=== PATIENT | female | born 2000 | race Caucasian/White ===

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

== ENCOUNTER → 2022-03-20 | Outpatient (CLI) | payer OTHER ==
[2022-03-20 19:38] LABS: ALBUMIN 4.7 g/dL (3.5-5.0); POTASSIUM 3.7 mmol/L (3.5-5.1)
[2022-03-20 19:39] LABS: CALCIUM 10.3 mg/dL (8.3-10.5)
[2022-03-20 19:42] LABS: TOTAL BILIRUBIN 0.8 mg/dL (0.2-1.2)
[2022-03-20 20:13] LABS: TOTAL PROTEIN 8.2 g/dL (6.4-8.3)
== END ==
LOC: LAB 18:23
PROVIDERS: Nurse Practitioner Family
DX: U07.1 COVID-19 (principal)